=== PATIENT | male | born 1990 | race Caucasian/White ===

== ENCOUNTER 2020-09-11 12:49 | Emergency (ER) | payer OTHER ==
--- NOTE | 2020-09-11 16:33 | EDPHYS ---
Physician Documentation [facility] Name: Giacomo Flowers Age: 30 yrs Sex: Male : 1990 Arrival Date: 09/11/2020 Time: 12:55 Bed 27 Private MD: ED Physician Derek Zhao HPI: 09/11 16:10 This 30 yrs old Male presents to ER via Ambulatory with complaints of abcess cp in knee. 16:10 The patient presents with pain, that is acute, swelling, tenderness. The complaints cp affect the left knee. Onset: The symptoms/episode began/occurred 2 day(s) ago. Associated signs and symptoms: Pertinent positives: warmth, Pertinent negatives calf tenderness, fever. Historical: - Allergies: 13:16 No Known Allergies; ll1 - PMHx: 13:16 None; ll1 - PSHx: 13:16 None; ll1 - Immunization history:: Flu vaccine is up to date. - Social history:: Smoking status: Patient denies any tobacco usage or history of. ROS: 16:15 Constitutional: Negative for body aches, chills, fever. cp 16:15 Cardiovascular: Negative for chest pain. cp 16:15 Respiratory: Negative for cough, shortness of breath. 16:15 Skin: Positive for erythema, swelling, of the anterior left knee. 16:15 All other systems are negative. Exam: 16:20 Constitutional: The patient appears in no acute distress, alert, awake, non-toxic, well cp developed, well nourished. 16:20 Head/Face: Normocephalic, atraumatic. cp 16:20 Cardiovascular: Rate: normal. 16:20 Respiratory: the patient does not display signs of respiratory distress, Respirations: normal, no use of accessory muscles, no retractions. 16:20 Musculoskeletal/extremity: Joints: the left knee displays no joint line tenderness, no ROM restriction. 16:20 Skin: abscess, not appreciated, cellulitis, that is moderate, irregular, on the anterior aspect left knee. Vital Signs: 13:13 BP 139 / 84; Pulse 76; Resp 16; Temp 98.5; Pulse Ox 98% ; Weight 92.99 kg; Height 5 ft. ll1 10 in. (177.80 cm); Pain 8/10; 15:38 BP 124 / 84 LA Sitting (auto/reg); Pulse 69; Resp 18; Pulse Ox 100% ; jp3 13:13 Body Mass Index 29.41 (92.99 kg, 177.80 cm) ll1 MDM: 15:50 Patient medically screened. cp 16:10 Differential diagnosis: cellulitis, abscess, septic joint. cp 16:32 Data reviewed: vital signs, nurses notes, and as a result, I will discharge patient. cp 16:32 Counseling: I had a detailed discussion with the patient and/or guardian regarding: the cp historical points, exam findings, and any diagnostic results supporting the discharge/admit diagnosis, the need for outpatient follow up, a orthopedic surgeon, to return to the emergency department if symptoms worsen or persist or if there are any questions or concerns that arise at home. 09/11 16:06 Order name: Wound Culture 09/11 16:06 Order name: Misc. Order: outline area of erythema; Complete Time: 16:25 cp 09/11 16:06 Order name: Wound dressing: please clean and dress wound; Complete Time: 16:25 cp Administered Medications: 16:47 Drug: Bactrim (160 mg-800 mg (DS) 2 tablet Route: PO; ss 17:04 Follow up: Response: No adverse reaction; Medication administered at discharge. 16:47 Drug: Doxycycline 200 mg Route: PO; ss 17:05 Follow up: Response: Medication administered at discharge. Disposition: 16:45 Chart complete. 09/12 07:30 Co-signature as Attending Physician, Derek Zhoa MD I agree with the assessment and tw4 plan of care. Disposition: 09/11/20 16:33 Discharged to Home. Impression: Cellulitis of left lower limb - left knee. - Condition is Stable. - Discharge Instructions: Cellulitis, Adult. - Prescriptions for Ibuprofen 800 mg Oral Tablet - take 1 tablet by ORAL route every 8 hours As needed take with food; 30 tablet. Doxycycline Hyclate 100 mg Oral Tablet - take 1 tablet by ORAL route every 12 hours; 20 tablet. Bactrim DS 800- 160 mg Oral Tablet - take 1 tablet by ORAL route every 12 hours for 10 days; 20 tablet. - Work release form, Medication Reconciliation Form, Thank You Letter, Antibiotic Education, Prescription Opioid Use form. - Follow up: Wayne Madrigal MD; When: 1 - 2 days; Reason: Worsening of condition. - Problem is new. - Symptoms have improved. Signatures: Dispatcher [employer] EDMS Blanca Don RN RN ss Dallin Larson PA PA cp Wadley, Terrence, MD MD tw4 David Wheatley RN RN ll1 Corrections: (The following items were deleted from the chart) 09/11 17:04 16:33 09/11/2020 16:33 Discharged to Home. Impression: Cellulitis of left lower limb - ss left knee. Condition is Stable. Forms are Medication Reconciliation Form, Thank You Letter, Antibiotic Education, Prescription Opioid Use. Follow up: Wayne Madrigal; When: 1 - 2 days; Reason: Worsening of condition. Problem is new. Symptoms have improved. cp
--- NOTE | 2020-09-11 16:33 | ER ---
Nurse's Notes [facility] Name: Giacomo Flowers Age: 30 yrs Sex: Male : 1990 Arrival Date: 09/11/2020 Time: 12:55 Bed 27 Private MD: Diagnosis: Cellulitis of left lower limb-left knee Presentation: 09/11 13:13 Chief complaint: Patient states: L knee abscess for 4 days, getting progressively ll1 worse. Drains yellowish liquid from site. Surrounding cellulitis noted. No fever. Coronavirus screen: Client denies travel out of the [place] in the last 14 days. At this time, the client does not indicate any symptoms associated with coronavirus-19. Ebola Screen: Patient denies travel to an Ebola-affected area in the 21 days before illness onset. Initial Sepsis Screen: Does the patient meet any 2 criteria? No. Patient's initial sepsis screen is negative. Does the patient have a suspected source of infection? Yes: Skin breakdown/wound. Risk Assessment: Do you want to hurt yourself or someone else? Patient reports no desire to harm self or others. Onset of symptoms was September 08, 2020. 13:13 Method Of Arrival: Ambulatory ll1 13:13 Acuity: KAYKAY 4 ll1 Triage Assessment: 13:16 General: Appears in no apparent distress. Behavior is calm, cooperative, appropriate ll1 for age. Pain: Complains of pain in L knee Quality of pain is described as aching, Pain began 4 days Aggravated by increased activity. Derm: Abscess located on L knee is quarter sized, has purulent drainage, is hot to touch, is red, is raised. Historical: - Allergies: 13:16 No Known Allergies; ll1 - PMHx: 13:16 None; ll1 - PSHx: 13:16 None; ll1 - Immunization history:: Flu vaccine is up to date. - Social history:: Smoking status: Patient denies any tobacco usage or history of. Screenin:55 Abuse screen: Denies threats or abuse. Denies injuries from another. Nutritional ss screening: No deficits noted. Tuberculosis screening: Never had TB. Fall Risk None identified. Assessment: 15:55 General: Appears in no apparent distress. comfortable, Behavior is calm, cooperative. ss Pain: Complains of pain in left knee Pain currently is 8 out of 10 on a pain scale. Quality of pain is described as tender, Is continuous. Neuro: Level of Consciousness is awake, alert, obeys commands, Oriented to person, place, time, situation. Cardiovascular: Capillary refill < 3 seconds is brisk in bilateral fingers. Respiratory: Airway is patent Respiratory effort is even, unlabored, Respiratory pattern is regular, symmetrical. GI: No signs and/or symptoms were reported involving the gastrointestinal system. Derm: Skin is intact, is healthy with good turgor, Skin is dry, Skin is pink, warm \T\ dry. normal. Derm: redness noted to L Knee and surrounding skin. Musculoskeletal: Circulation, motion, and sensation intact. Range of motion: intact in all extremities, Swelling present in left knee. 16:59 Reassessment: Patient appears in no apparent distress at this time. Patient and/or ss family updated on plan of care and expected duration. Pain level reassessed. Patient is alert, oriented x 3, equal unlabored respirations, skin warm/dry/pink. Vital Signs: 13:13 BP 139 / 84; Pulse 76; Resp 16; Temp 98.5; Pulse Ox 98% ; Weight 92.99 kg; Height 5 ft. ll1 10 in. (177.80 cm); Pain 8/10; 15:38 BP 124 / 84 LA Sitting (auto/reg); Pulse 69; Resp 18; Pulse Ox 100% ; jp3 13:13 Body Mass Index 29.41 (92.99 kg, 177.80 cm) ll1 ED Course: 12:55 Patient arrived in ED. am4 13:13 Arm band placed on. ll1 13:15 Triage completed. ll1 15:40 Bed in low position. Call light in reach. Warm blanket given. Verbal reassurance given. jp3 Pulse ox on. NIBP on. 15:40 Patient maintains SpO2 saturation greater than 95% on room air. jp3 15:50 Dallin Larson PA is PHCP. cp 15:50 Derek Zhao MD is Attending Physician. cp 16:25 Dressings: Kerlix X 1; left knee non-adherent dressing x 1 left knee. Wound care: to jp3 cellulitis located on left knee was cleaned with Hibiclens, debrided using irrigated with normal saline, dressed with Neosporin, Patient tolerated well. surgical marker used to cornell outer edges of wound. (dated). 16:32 Wayne Madrigal MD is Referral Physician. cp 16:34 Blanca Don, RN is Primary Nurse. 16:58 No provider procedures requiring assistance completed. Patient did not have IV access ss during this emergency room visit. Administered Medications: 16:47 Drug: Bactrim (160 mg-800 mg (DS) 2 tablet Route: PO; ss 17:04 Follow up: Response: No adverse reaction; Medication administered at discharge. ss 16:47 Drug: Doxycycline 200 mg Route: PO; ss 17:05 Follow up: Response: Medication administered at discharge. Outcome: 16:33 Discharge ordered by MD. cp 16:58 Discharged to home ambulatory. 16:58 Condition: good 16:58 Discharge instructions given to patient, Instructed on discharge instructions, follow up and referral plans. medication usage, Demonstrated understanding of instructions, follow-up care, medications, Prescriptions given X 2. 17:04 Patient left the ED. ss Addendum: 09/14/2020 07:22 Addendum: Culture Results: Positive urine culture. No further action required. Bacteria e b sensitive to prescribed antibiotic. Signatures: Blanca Don, RN RN Dallin Maldonado PA PA cp Botello, Elizabeth eb Pisarski, Jacob jp3 David Wheatley RN RN ll1 Yarely Sarmiento 4
[2020-09-11] MEDS ORDERED: DOXYCYCLINE 100 MG CAP PO ONE (16:56)
[2020-09-11] MEDS ORDERED: SMZ./TMP. 800/160 MG TABLET ONE (16:56)
[2020-09-11 17:16] VITALS: TEMP 98.5
[2020-09-11 17:17] VITALS: BP 124/84; O2SAT 100
== END 2020-09-11 17:04 | disposition home or self-care (01) ==
LOC: ER 12:49
DX: L03.116 Cellulitis of left lower limb (principal)
CPT/HCPCS: 87070; 87077; 87186; 87205; 99284